=== PATIENT | female | born 1980 | race Caucasian/White ===

== ENCOUNTER 2017-01-11 07:29 | Day surgery (SDC) | payer OTHER ==
[2017-01-05 13:56] LABS: HEMOGLOBIN 12.4 g/dL (12.0-16.0)
[2017-01-05 13:57] LABS: HEMATOCRIT 36.2 % (36.0-48.0)
[2017-01-05 14:05] LABS: PARTIAL THROMBO TIME 29.5 SEC (22.5-37.2)
[2017-01-05 14:18] LABS: CALCIUM, SERUM 8.3 MG/DL (8.5-10.4); CHLORIDE, SERUM 108 MMOL/L (96-112); CO2 (CARBON DIOXIDE) 26 MMOL/L (24-34); GFR AFRICAN AMERICAN 113 ML/MIN (>=60); GFR NON AFRICAN AMERICAN 97 ML/MIN (>=60); GLUCOSE, SERUM 89 MG/DL (60-99); POTASSIUM, SERUM 3.8 MMOL/L (3.5-5.3); SODIUM, SERUM 139 MMOL/L (135-148)
[2017-01-05 14:20] LABS: BUN (BLOOD UREA NITROGEN) 16 MG/DL (6-23); CREATININE 0.78 MG/DL (0.55-1.02)
[~2017-01-11 07:29] MED LIST: I10 PO; I40 PO; INDE120LA PO; INDE160LA PO; L40 PO; MAGOX4 PO; MULTIVITAMI1 PO; PREVIFEM PO; PROTONIX PO; REG PO; SPIR100 PO; SPIRO50 PO; SPRINTEC 2828 DAY PO; SYPRINE PO
[2017-01-11 08:59] LABS: BASOPHILS 0 %; EOSINOPHILS 2.3 %; EOSINOPHILS ABSOLUTE 0.06 10/3/uL (0.0-0.53); HEMATOCRIT 38.6 % (36.0-48.0); HEMOGLOBIN 13.3 g/dL (12.0-16.0); LYMPHOCYTES 22.6 %; MEAN CORPUS HGB CONC 34.5 g/dL (32.0-36.0); MEAN CORPUSCULAR HEMOGLOB 29.8 pg (26.0-34.0); MONOCYTES 11.7 %; MONOCYTES ABSOLUTE 0.31 10/3/uL (0.21-1.20); NEUTROPHILS 63.4 %; NEUTROPHILS ABSOLUTE 1.69 10/3/uL (2.02-8.40); RBC DISTRIBUTION WIDTH 14.8 % (12.0-16.0); RED CELL COUNT 4.46 10/6/uL (4.0-5.6)
[2017-01-11 09:00] LABS: MANUAL DIFF NO %; MEAN CORPUSCULAR VOLUME 86.5 fL (80-100); PLATELET COUNT 53 10/3/uL (150-400); WHITE BLOOD CELLS 2.7 10/3/uL (4.5-10.5)
[2017-01-11 09:08] LABS: INTERNATIONAL NORMAL RATI 1.1 UNITS (-); PARTIAL THROMBO TIME 29.3 SEC (22.5-37.2); PROTIME (NOT ORD) 14.3 SEC (12.0-14.5)
[2017-01-11 09:24] LABS: BUN (BLOOD UREA NITROGEN) 17 MG/DL (6-23); CALCIUM, SERUM 8.8 MG/DL (8.5-10.4); CHLORIDE, SERUM 103 MMOL/L (96-112); CO2 (CARBON DIOXIDE) 29 MMOL/L (24-34); GFR AFRICAN AMERICAN 95 ML/MIN (>=60); GFR NON AFRICAN AMERICAN 82 ML/MIN (>=60); GLUCOSE, SERUM 97 MG/DL (60-99); POTASSIUM, SERUM 3.5 MMOL/L (3.5-5.3); SGOT(AST) 55 U/L (5-40); SGPT(ALT) 80 U/L (5-65); SODIUM, SERUM 138 MMOL/L (135-148); TOTAL PROTEIN 7.8 G/DL (6.0-8.5)
[2017-01-11 09:26] LABS: A/G RATIO 1.1 (0.7-1.9); ALKALINE PHOSPHATASE 163 U/L (45-117); GLOBULIN 3.8 G/DL (2.5-4.1); TOTAL BILIRUBIN 1.6 MG/DL (0-1.2)
[2017-02-13] MEDS ORDERED: VIMPAT100 MG PO (11:26)
[2017-02-13] MEDS ORDERED: HYCET 7.5 MG-3473 ML PO (11:26)
== END 2017-01-11 23:59 | disposition home or self-care (01) ==
LOC: SDC 07:29
PROVIDERS: Otolaryngology
DX: J35.1 Hypertrophy of tonsils (principal); K21.9 Gastro-esophageal reflux disease without esophagitis; K44.9 Diaphragmatic hernia without obstruction or gangrene; E83.01 Wilson's disease; K74.60 Unspecified cirrhosis of liver; F32.9 Major depressive disorder, single episode, unspecified; Z53.9 Procedure and treatment not carried out, unspecified reason
CPT/HCPCS: 80048; 80053; 84703; 85014; 85018; 85025; 85610; 85730; J0330; J2250; J3010